=== PATIENT | female | born 1960 | race Caucasian/White ===

== ENCOUNTER → 2020-04-25 09:45 | Outpatient (BNVA) | payer OTHER, SELFPAY | PROVIDERS: PCP Internal Medicine; Visit Provider Internal Medicine Endocrinology, Diabetes & Metabolism | DX: E11.65 Type 2 diabetes mellitus with hyperglycemia (principal); E11.21 Type 2 diabetes mellitus with diabetic nephropathy; E11.40 Type 2 diabetes mellitus with diabetic neuropathy, unspecified; Z79.4 Long term (current) use of insulin; I10 Essential (primary) hypertension; E78.5 Hyperlipidemia, unspecified; E55.9 Vitamin D deficiency, unspecified; E66.3 Overweight; Z68.28 Body mass index [BMI] 28.0-28.9, adult; R10.9 Unspecified abdominal pain; Z87.442 Personal history of urinary calculi | CPT/HCPCS: 82947; 99212 ==

== ENCOUNTER 2020-04-25 10:24 | Emergency (ER) | payer OTHER, SELFPAY ==
[2020-04-25 10:47] VITALS: BP 169/99; PULSE 85; RESP 16; TEMP 36.8; O2SAT 99; BMI 24.7
--- NOTE | 2020-04-25 10:52 | CT_ITS ---
EXAMINATION: CT ABDOMEN AND PELVIS WITHOUT CONTRAST CLINICAL INFORMATION: Left flank pain. History of kidney stone. COMPARISON: None TECHNIQUE: Multidetector volumetric imaging was performed from the superior aspect of the liver through the pubic symphysis. Sagittal and coronal reformatted images were obtained on the technologist's workstation. This CT examination was performed using dose optimization techniques as appropriate, variously including the following: *Automated exposure control *Adjustment of mA and/or kV according to patient size (this includes techniques or standardized protocols for targeted exams where dose is matched to indication/reason for exam; i.e. extremities or head) *Use of iterative reconstruction technique DLP: 429 mGy-cm FINDINGS: LUNG BASES: The visualized lung bases are clear. There is a right breast implant. LIVER, GALLBLADDER, AND BILIARY TREE: The liver is normal in size, shape, and attenuation. No focal hepatic lesion or biliary ductal dilatation is present. There is a large gallstone in the gallbladder. PANCREAS: Unremarkable. SPLEEN: Unremarkable. ADRENAL GLANDS: There is a 2.5 cm low-attenuation right adrenal lesion. Hounsfield units measure 9 suggestive of a benign adenoma. The left adrenal gland is normal. KIDNEYS AND URETERS: There is a 3.7 x 4.7 cm cyst in the right kidney. There is a small 2 mm nonobstructing right lower pole renal stone. There is a small 1 mm nonobstructing stone in the lower pole of the left kidney. No hydronephrosis, ureteral dilatation or ureteral stone is seen. BLADDER: Bladder is not optimally distended. There is question of bladder wall thickening. GASTROINTESTINAL TRACT: There are postsurgical changes following right colectomy. Small and large bowel is otherwise unremarkable. The stomach is unremarkable. ABDOMINAL WALL: There is diastasis of the rectus muscles. No hernia is seen. LYMPH NODES: Normal. VASCULAR: There is evidence of atherosclerotic disease. No aneurysm is seen. PELVIC VISCERA: Unremarkable. OSSEOUS STRUCTURES: There is a 1 cm nonspecific sclerotic density in the right iliac bone. This may represent a bone island. CT/CT abdomen pelvis wo con IMPRESSION: Small bilateral nonobstructing renal stones. Question diffuse bladder wall thickening. Correlation with urinalysis and culture recommended. Large gallstone in the gallbladder. 2.5 cm low-attenuation right adrenal lesion probably representing a benign adenoma. Postsurgical changes following right hemicolectomy.
--- NOTE | 2020-04-25 11:09 | ED.ABDPAIN ---
HPI - Abdominal Pain General Chief Complaint: Abdominal Pain Stated Complaint: left flank pain Time Seen by Provider: 04/25/20 10:52 Source: patient Mode of arrival: ambulatory Limitations: language barrier History of Present Illness HPI narrative: 59 y/o female with history of kidney stones, diabetes, HTN, HLD, obesity who presents with left sided flank pain since yesterday. She states it feels like prior episodes of kidney stones, which she has not had in 2 years. She took Tylenol without improvement in the pain. She denies blood in her urine. Related Data Home Medications Medication Instructions Recorded Confirmed baclofen 10 mg tablet 10 mg PO TID 04/25/20 04/25/20 blood sugar diagnostic #10 ea 04/25/20 04/25/20 cholecalciferol (vitamin D3) 50 PO DAILY 04/25/20 04/25/20 mcg (2,000 unit) tablet diclofenac sodium 1 % topical gel 1 g TOPICAL QID 04/25/20 04/25/20 ezetimibe 10 mg tablet 10 mg PO DAILY 04/25/20 04/25/20 lancets 28 gauge #100 ea 04/25/20 04/25/20 losartan 25 mg tablet 12.5 mg PO DAILY 04/25/20 04/25/20 timolol maleate 0.5 % eye drops 1 drp OPHTHALMIC (EYE) QAM 04/25/20 04/25/20 zolpidem 10 mg tablet 10 mg PO BEDTIME PRN 04/25/20 04/25/20 Previous Rx's Medication Instructions Recorded Lovaza 1 gram capsule 1 cap PO BID 90 Days #180 cap NS 04/25/20 dulaglutide 1.5 mg/0.5 mL 1.5 mg SUBCUT QWEEK 90 Days #6.5 ml 04/25/20 subcutaneous pen injector empagliflozin 25 mg tablet 25 mg PO DAILY 90 Days #90 tab 04/25/20 fenofibrate 160 mg tablet 160 mg PO DAILY 90 Days #90 tab 04/25/20 insulin degludec 100 unit/mL (3 18 unit SUBCUT DAILY 90 Days #30 ml 04/25/20 mL) subcutaneous pen lidocaine [Lidoderm] 1 patch TOPICAL DAILY #15 ea 04/25/20 metformin 500 mg tablet,extended 1,000 mg PO BID 90 Days #360 tab 04/25/20 release 24 hr naproxen 500 mg PO BID PRN #20 tab 04/25/20 rosuvastatin 40 mg tablet 40 mg PO DAILY 90 Days #90 tab 04/25/20 Allergies Allergy/AdvReac Type Severity Reaction Status Date / Time lisinopril Allergy Unknown Palpitation Verified 01/19/20 00:00 s simvastatin Allergy Unknown Muscle Verified 01/19/20 00:00 aches Review of Systems Review of Systems Constitutional: No Fever, No Chills ENT/Mouth: No sore throat, No Rhinorrhea, No Swallowing Difficulty Eyes: No Eye Pain, No Swelling, No Redness Cardiovascular: No Chest Pain, No SOB, No Orthopnea, No Edema Respiratory: No Cough, No Sputum, No Wheezing, No dyspnea Gastrointestinal: No Nausea, No Vomiting, No Diarrhea, No abdominal Pain, No Hematochezia, No Melena Genitourinary: No Dysuria, No Urinary Frequency, No Hematuria Musculoskeletal: No joint pain, No Myalgias Skin: No Skin Lesions, No rash Neuro: No Weakness, No Numbness, No Dizziness, No Headache Psych: No Anxiety/Panic, No Depression Heme/Lymph: No Bruising, No Lymphadenopathy Endocrine: No Polyuria, No Polydipsia Physical Exam Vital Signs: Vital Signs: Last Vital Signs Temp 98.3 F 04/25/20 10:47 Pulse 85 04/25/20 10:47 Resp 16 04/25/20 10:47 BP 169/99 H 04/25/20 10:47 Pulse Ox 99 04/25/20 10:47 Body Mass Index 24.7 MDM - Abdominal Pain Lab Data Result diagrams: 04/25/20 11:12 04/25/20 11:12 Labs: Lab Results 04/25/20 04/25/20 04/25/20 Range/Units 11:12 11:12 11:23 WBC 12.3 H (4.8-10.8) X10*3/uL RBC 4.61 (4.20-5.50) X10*6/uL Hgb 13.7 (12.0-16.0) g/dl Hct 41.6 (37-47) % MCV 90.2 (80-98) fL MCH 29.7 (27.0-33.0) pg MCHC 32.9 (31.0-35.0) g/dl RDW 13.1 (11.0-16.0) % Plt Count 204 (160-400) X10*3/uL MPV 10.1 (9.4-12.3) fL Immature Gran % (Auto) 0.4 (0.0-0.4) % Neut % (Auto) 69.3 (45-73) % Lymph % (Auto) 20.3 (20-40) % [place] % (Auto) 6.4 (2-11) % Eos % (Auto) 2.8 (0-4) % Baso % (Auto) 0.8 (0-2) % Lymph # (Auto) 2.5 (1.2-4.9) X10*3/uL [place] # (Auto) 0.8 (0.1-1.2) X10*3/uL Eos # (Auto) 0.3 (0.0-0.4) X10*3/uL Baso # (Auto) 0.1 (0.0-0.2) X10*3/uL Abs Immat Gran (auto) 0.05 H (0.00-0.03) X10*3/uL Absolute Neuts (auto) 8.5 H (2.0-8.3) X10*3/uL Absolute Nucleated RBC 0.000 (0.0-0.012) X10*3/uL Nucleated RBC % (auto) 0.0 (0.0-0.2) /100WBC Sodium 141 (135-145) mmol/L Potassium 4.3 (3.3-5.1) mmol/l Chloride 106 (96-108) mmol/L Carbon Dioxide 27 (22-29) mmol/L Anion Gap 12 (12-20) BUN 14 (9-16) mg/dL Creatinine 0.61 (0.5-1.4) mg/dL Estim Creat Clear Calc 76.9 Estimated GFR > 60 Random Glucose 124 H (60-115) mg/dL Calcium 9.4 (8.4-10.2) mg/dL Total Bilirubin 0.6 (0.0-1.0) mg/dL Direct Bilirubin 0.2 (0.0-0.5) mg/dL AST 16 (5-31) U/L ALT 17 (0-31) U/L Alkaline Phosphatase 61 (39-117) U/L Total Protein 6.9 (6.5-8.0) g/dL Albumin 4.2 (3.5-5.0) g/dL Urine Color YELLOW Urine Appearance CLEAR Urine pH 5.0 (5.0-8.0) Ur Specific [place] 1.025 (1.005-1.025) Urine Protein NEG (NEG-TRACE) MG/DL Urine Glucose (UA) >=1000 H (NEG) MG/DL Urine Ketones NEG (NEG) MG/DL Urine Blood NEG (NEG) Urine Nitrite NEG (NEG) Ur Leukocyte Esterase NEG (NEG) Urine RBC 0 (0) /HPF Urine WBC 1-4 (0-4) /HPF Ur Squamous Epith Cells 1+ /LPF Urine Bacteria NONE /LPF Critical Care Time Critical Care Time Critical Care Time: No Discharge Plan Discharge Clinical Impression: Muscle strain Patient Disposition: Home, Self-Care Instructions: Muscle Strain (ED), Musculoskeletal Pain (ED) Additional Instructions: Your lab work and CT scan did not show any causes of your left sided pain. It is possible that your pain musculoskeletal in nature. Recommend rest, ice and/or heat to the area several times per day. Avoid heavy lifting, bending and twisting motions. Follow up with your doctor this week. If your symptoms persist or worsen come back to the ER for further evaluation. Prescriptions: New lidocaine [Lidoderm] 5 % adhesive patch,medicated 1 patch topical DAILY Qty: 15 RF: 0 naproxen 500 mg tablet 500 mg PO BID PRN (Reason: pain) Qty: 20 RF: 0 Continued zolpidem 10 mg tablet 10 mg PO BEDTIME PRNRF: 0 diclofenac sodium 1 % gel 1 g topical QID RF: 0 baclofen 10 mg tablet 10 mg PO TID RF: 0 timolol maleate 0.5 % drops 1 drp ophthalmic (eye) QAM RF: 0 losartan 25 mg tablet 12.5 mg PO DAILY RF: 0 ezetimibe 10 mg tablet 10 mg PO DAILY RF: 0 (DME) lancets 28 gauge misc See Rx Instructions lancet topical TID Qty: 100 RF: 0 cholecalciferol (vitamin D3) 50 mcg (2,000 unit) tablet PO DAILY RF: 0 (DME) blood sugar diagnostic Strip See Rx Instructions ea Not Applicable TID Qty: 10 RF: 0 dulaglutide 1.5 mg/0.5 mL pen injector 1.5 mg subcut QWEEK 90 Days Qty: 6.5 RF: 2 Jardiance 25 mg tablet 25 mg PO DAILY 90 Days Qty: 90 RF: 3 metformin 500 mg tablet extended release 24 hr 1,000 mg PO BID 90 Days Qty: 360 RF: 1 insulin degludec 100 unit/mL (3 mL) insulin pen 18 unit subcut DAILY 90 Days Qty: 30 RF: 1 rosuvastatin 40 mg tablet 40 mg PO DAILY 90 Days Qty: 90 RF: 1 fenofibrate 160 mg tablet 160 mg PO DAILY 90 Days Qty: 90 RF: 1 omega-3 acid ethyl esters [Lovaza] 1 gram capsule 1 cap PO BID 90 Days Qty: 180 RF: 2 Print Language: Slovenian [facility] Past Medical History Medical History (Updated 04/25/20 @ 12:16 by LESTER Rodriguez) Depression Diabetes type 2, uncontrolled Diabetic nephropathy associated with type 2 diabetes mellitus Dyslipidemia Flank pain with history of urolithiasis History of breast cancer Hypertension group home (current) use of insulin Overweight (BMI 25.0-29.9) Vitamin D deficiency Surgical History History of partial surgical removal of colon Hx of mastectomy Family History Family History (Updated 04/20/20 @ 12:01 by SHERON Prather) Father Diabetes mellitus Mother Asthma Heart disease Paternal Grandmother Asthma Heart disease Diabetes mellitus Social History Social History (Updated 04/20/20 @ 12:01 by SHERON Prather) Alcohol intake: never Smoking Status: Never smoker Use of substances other than those prescribed or required for medical reasons: No Advance Directives: No Advance Directives Information Provided: Yes
[2020-04-25 11:16] LABS: MANUAL DIFF FLAG NO
[2020-04-25 11:21] LABS: Basophils Absolute Auto 0.1 X10*3/uL (0.0-0.2); Basophils Percent Auto 0.8 % (0-2); Eosinophils Absolute Auto 0.3 X10*3/uL (0.0-0.4); Eosinophils Percent Auto 2.8 % (0-4); Hematocrit 41.6 % (37-47); Hemoglobin 13.7 g/dl (12.0-16.0); Imm Gran Abs Auto 0.05 X10*3/uL (0.00-0.03); Imm Gran Pct Auto 0.4 % (0.0-0.4); Lymphocytes Absolute Auto 2.5 X10*3/uL (1.2-4.9); Lymphocytes Percent Auto 20.3 % (20-40); Mean Corpuscular HGB Conc 32.9 g/dl (31.0-35.0); Mean Corpuscular Hemoglobin 29.7 pg (27.0-33.0); Mean Corpuscular Volume 90.2 fL (80-98); Mean Platelet Volume 10.1 fL (9.4-12.3); Monocytes Absolute Auto 0.8 X10*3/uL (0.1-1.2); Monocytes Percent Auto 6.4 % (2-11); Neutrophils Absolute Auto 8.5 X10*3/uL (2.0-8.3); Neutrophils Percent Auto 69.3 % (45-73); Platelet Count 204 X10*3/uL (160-400); Red Blood Count 4.61 X10*6/uL (4.20-5.50); Red Cell Distribution Width 13.1 % (11.0-16.0); White Blood Count 12.3 X10*3/uL (4.8-10.8)
[2020-04-25] MEDS: 0.9 % Sodium Chloride 1,000 ML 999 ML IVCONT (11:22)
[2020-04-25] MEDS: Ketorolac Tromethamine 30 MG/ML VIAL IVPUSH (11:22)
[2020-04-25 11:31] LABS: Glucose Urine UA >=1000 MG/DL (NEG); Leukocyte Esterase Urine NEG (NEG); Nitrite Urine NEG (NEG); Specific Gravity - Urine 1.025 (1.005-1.025); Urine Blood NEG (NEG); Urine Ketones NEG (NEG); Urine Protein NEG (NEG-TRACE)
[2020-04-25 11:33] LABS: Appearance Urine CLEAR; Color Urine YELLOW
[2020-04-25 11:43] LABS: RBC Urine 0 /HPF (0); Squamous Epithelial Cell Urine 1+ /LPF
[2020-04-25 11:55] LABS: Alanine Aminotransferase 17 U/L (0-31); Albumin Level 4.2 g/dL (3.5-5.0); Alkaline Phosphatase 61 U/L (39-117); Anion Gap 12 (12-20); Aspartate Amino Transferase 16 U/L (5-31); Bilirubin Direct 0.2 mg/dL (0.0-0.5); Bilirubin Total 0.6 mg/dL (0.0-1.0); Blood Urea Nitrogen 14 mg/dL (9-16); Calcium 9.4 mg/dL (8.4-10.2); Carbon Dioxide 27 mmol/L (22-29); Chloride 106 mmol/L (96-108); Creatinine Clr Calc Pharmacy 76.9; Estimated Glomerular Filt Rate > 60; Glucose Random 124 mg/dL (60-115); Potassium 4.3 mmol/l (3.3-5.1); Sodium 141 mmol/L (135-145); Total Protein 6.9 g/dL (6.5-8.0)
== END 2020-04-25 12:36 | disposition home or self-care (01) ==
PROVIDERS: Physician Assistant; Emergency Provider Emergency Medicine Emergency Medical Services; PCP Internal Medicine
DX: R10.32 Left lower quadrant pain (principal); M54.5 Low back pain; I10 Essential (primary) hypertension; Z79.899 Other long term (current) drug therapy
CPT/HCPCS: 36415; 74176; 80048; 80076; 81001; 85025; 96361; 96374; 99284; J1885

== ENCOUNTER 2020-05-01 09:26 | Outpatient (REF) | payer OTHER, SELFPAY ==
[2020-05-01 10:54] LABS: Alanine Aminotransferase 27 U/L (0-31); Albumin Level 4.3 g/dL (3.5-5.0); Alkaline Phosphatase 65 U/L (39-117); Anion Gap 13 (12-20); Aspartate Amino Transferase 25 U/L (5-31); Bilirubin Total 0.4 mg/dL (0.0-1.0); Blood Urea Nitrogen 19 mg/dL (9-16); Calcium 8.8 mg/dL (8.4-10.2); Carbon Dioxide 28 mmol/L (22-29); Chloride 107 mmol/L (96-108); Cholesterol 174 mg/dL; Estimated Glomerular Filt Rate > 60; Glucose Fasting 154 mg/dL (60-99); HDL Cholesterol 28 mg/dL; Sodium 144 mmol/L (135-145); Total Protein 7.1 g/dL (6.5-8.0); Triglycerides 449 mg/dL
[2020-05-01 11:17] LABS: Free T4 (Free Thyroxine) 0.94 ng/dL (0.71-1.85); Thyroid Stimulating Hormone 3.47 uIU/mL (0.32-4.0); Vitamin D 25-OH Total 36.5 ng/mL (>30)
[2020-05-01 11:47] LABS: Creatinine Urine 77.84 mg/dL; Microalbum/Creatinine Ratio Ur 93.7 ug/mg cr
[2020-05-02 07:28] LABS: LDL Cholesterol Direct 83 mg/dL (<100)
== END 2020-05-01 09:27 | disposition home or self-care (01) ==
LOC: HO.LAB 09:26
PROVIDERS: PCP Internal Medicine; Visit Provider Internal Medicine Endocrinology, Diabetes & Metabolism
DX: E11.65 Type 2 diabetes mellitus with hyperglycemia (principal)
CPT/HCPCS: 80053; 80061; 82043; 82306; 83721; 84439; 84443

== ENCOUNTER → 2020-08-23 09:53 | Outpatient (BNVA) | payer OTHER, SELFPAY | PROVIDERS: PCP Internal Medicine; Visit Provider Internal Medicine Endocrinology, Diabetes & Metabolism | DX: E11.65 Type 2 diabetes mellitus with hyperglycemia (principal); E11.21 Type 2 diabetes mellitus with diabetic nephropathy; Z79.4 Long term (current) use of insulin; I10 Essential (primary) hypertension; E78.5 Hyperlipidemia, unspecified; E55.9 Vitamin D deficiency, unspecified; E66.3 Overweight | CPT/HCPCS: 82947; 99212 ==

== ENCOUNTER → 2020-12-14 10:42 | Outpatient (BNVA) | payer OTHER, SELFPAY | PROVIDERS: Visit Provider Nurse Practitioner Gerontology | DX: E11.65 Type 2 diabetes mellitus with hyperglycemia (principal); E11.21 Type 2 diabetes mellitus with diabetic nephropathy; E78.5 Hyperlipidemia, unspecified; E55.9 Vitamin D deficiency, unspecified; E66.3 Overweight; I10 Essential (primary) hypertension; Z79.4 Long term (current) use of insulin | CPT/HCPCS: 82947; 99212 ==

== ENCOUNTER 2021-03-14 10:20 | Outpatient (REF) | payer OTHER, SELFPAY ==
[2021-03-14 13:53] LABS: Alanine Aminotransferase 21 U/L (0-31); Albumin Level 4.2 g/dL (3.5-5.0); Alkaline Phosphatase 77 U/L (39-117); Anion Gap 12 (12-20); Aspartate Amino Transferase 18 U/L (5-31); Bilirubin Total 0.6 mg/dL (0.0-1.0); Blood Urea Nitrogen 15 mg/dL (9-16); Calcium 9.6 mg/dL (8.4-10.2); Carbon Dioxide 26 mmol/L (22-29); Chloride 106 mmol/L (96-108); Cholesterol 117 mg/dL; Estimated Glomerular Filt Rate > 60; Glucose Fasting 258 mg/dL (60-99); HDL Cholesterol 30 mg/dL; LDL Cholesterol Calculated 33 mg/dl; Potassium 4.1 mmol/L (3.3-5.1); Sodium 140 mmol/L (135-145); Total Protein 6.7 g/dL (6.5-8.0); Triglycerides 273 mg/dL
[2021-03-14 14:15] LABS: Vitamin D 25-OH Total 33.4 ng/mL (>30)
[2021-03-14 14:24] LABS: Creatinine Urine 48.31 mg/dL; Microalbum/Creatinine Ratio Ur 64.1 ug/mg cr
[2021-03-15 08:12] LABS: LDL Cholesterol Direct 57 mg/dL (<100)
== END 2021-03-14 10:21 | disposition home or self-care (01) ==
LOC: HO.10HDL 10:20
PROVIDERS: Visit Provider Nurse Practitioner Gerontology
DX: E11.21 Type 2 diabetes mellitus with diabetic nephropathy (principal); E11.65 Type 2 diabetes mellitus with hyperglycemia; E55.9 Vitamin D deficiency, unspecified; E78.5 Hyperlipidemia, unspecified; E66.3 Overweight; Z68.25 Body mass index [BMI] 25.0-25.9, adult; Z79.4 Long term (current) use of insulin; Z71.3 Dietary counseling and surveillance
CPT/HCPCS: 36415; 80053; 80061; 82043; 82306; 82947; 83036; 83721; 99212

== ENCOUNTER 2021-09-13 09:48 | Outpatient (REF) | payer OTHER, SELFPAY ==
[2021-09-13 12:07] LABS: Vitamin D 25-OH Total 35.5 ng/mL (>30)
== END 2021-09-13 09:49 | disposition home or self-care (01) ==
LOC: HO.LAB 09:48
PROVIDERS: Visit Provider Nurse Practitioner Gerontology
DX: E11.21 Type 2 diabetes mellitus with diabetic nephropathy (principal); I10 Essential (primary) hypertension; E78.5 Hyperlipidemia, unspecified; E55.9 Vitamin D deficiency, unspecified; E66.3 Overweight; M21.612 Bunion of left foot
CPT/HCPCS: 36415; 82306; 82947; 83036; 99212